=== PATIENT | male | born 1955 | race African-American/Black ===

== ENCOUNTER 2023-07-21 22:43 | Emergency (ER) | payer SELFPAY ==
[~2023-07-21] VITALS: Ht 177.8 cm; Wt 83.0 kg
[2023-07-21 23:00] VITALS: BP 168/96; PULSE 62; RESP 16; TEMP 98.1; O2SAT 99
== END 2023-07-21 23:56 | disposition left against medical advice (07) ==
LOC: ER 22:43
DX: E16.1 Other hypoglycemia (principal); E11.9 Type 2 diabetes mellitus without complications; I25.2 Old myocardial infarction; Z86.73 Personal history of transient ischemic attack (TIA), and cerebral infarction without residual deficits; Z99.2 Dependence on renal dialysis
CPT/HCPCS: 82962; 93005; 99283

== ENCOUNTER 2023-08-04 17:46 | Emergency (ER) | payer OTHER ==
[~2023-08-04] VITALS: Ht 177.8 cm; Wt 78.0 kg
[2023-08-04 17:56] VITALS: O2SAT 100
[2023-08-04] MEDS ORDERED: DEXTROSE 50% WATER 50ML SYRINGE IV ONE (18:30)
[2023-08-04 21:25] LABS: BASOPHILS % 0.2 % (0.0-2.0); EOSINOPHILS % 14.1 % (0.0-5.0); HEMATOCRIT. 39.4 % (42.0-52.0); HEMOGLOBIN. 12.6 g/dL (14.0-18.0); MEAN CORPUSCULAR HEMOGLOBIN 29.8 pg (28.0-32.0); MEAN CORPUSCULAR VOLUME 93.2 fL (80.0-94.0); MEAN PLATELET VOLUME 8.9 fl (7.4-10.4); MONOCYTES % 5.6 % (2.0-8.0); NEUTROPHILS % 72.1 % (40.0-76.0); PLATELET 225 x1000/uL (130-400); RED BLOOD CELL COUNT 4.23 mill/uL (4.7-6.1); RED CELL DISTRIBUTION WIDTH 17.8 % (11.6-14.6); WHITE BLOOD COUNT 8.2 x1000/uL (4.5-11.0)
[2023-08-04 21:48] LABS: ALANINE AMINOTRANSFERASE 9 IU/L (10-49); ALBUMIN 3.9 g/dL (3.2-4.8); ASPARTATE AMINOTRANSFERASE 15 IU/L (<34); BILIRUBIN TOTAL 0.3 mg/dL (0.1-1.0); CALCIUM 9.2 mg/dL (8.7-10.4); CARBON DIOXIDE 20 mEq/L (21-32); CHLORIDE 107 mEq/L (98-107); CREATININE 2.7 mg/dL (0.6-1.3); GLUCOSE 183 mg/dL (70-105); POTASSIUM 4.3 mEq/L (3.5-5.1); PROTEIN TOTAL 7.9 g/dL (6.0-8.3); SODIUM 140 mEq/L (136-145); UREA NITROGEN BLOOD 33 mg/dL (9-23)
[2023-08-04 21:55] LABS: TROPONIN I HIGH SENSITIVITY 55 ng/L (3.0-53)
[2023-08-04 23:58] LABS: TROPONIN I HIGH SENSITIVITY 54 ng/L (3.0-53)
[2023-08-05 03:39] VITALS: BP 124/66; PULSE 97; RESP 17; TEMP 98.6
== END 2023-08-05 03:39 | disposition home or self-care (01) ==
LOC: ER 17:46
DX: E11.649 Type 2 diabetes mellitus with hypoglycemia without coma (principal); R79.89 Other specified abnormal findings of blood chemistry; N19 Unspecified kidney failure; I25.2 Old myocardial infarction; Z86.73 Personal history of transient ischemic attack (TIA), and cerebral infarction without residual deficits; Z99.2 Dependence on renal dialysis; Z20.822 Contact with and (suspected) exposure to COVID-19
CPT/HCPCS: 36415; 71045; 80053; 82962; 83880; 84484; 85025; 87426; 93005; 96374; 99285